=== PATIENT | female | born 1995 | race Caucasian/White ===

== ENCOUNTER 2017-03-04 08:24 | Emergency (ER) | payer OTHER ==
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
[2017-03-04 10:20] VITALS: BP 132/80; PULSE 106; RESP 16; TEMP 98.2
--- NOTE | 2017-03-04 10:58 | XR ---
EXAM TYPE: LUMBAR SPINE X RAY SERIES COMPARISON: NONE HISTORY: Back pain TECHNIQUE: 4 views are submitted. FINDINGS: Alignment is anatomic. The pedicles are intact. The transverse processes are intact. There is no s pondylolysis or spondylolisthesis. IMPRESSION: 1. No acute process.
--- NOTE | 2017-03-04 11:01 | XR ---
EXAMINATION TYPE: XR shoulder complete LT DATE OF EXAM: 03/04/2017 COMPARISON: NONE HISTORY: Pain TECHNIQUE: Three views are submitted. FINDINGS: The osseous structures are intact. There is no acute fracture or dislocation. The AC joint is maint ained. IMPRESSION: 1. No acute process.
--- NOTE | 2017-03-04 11:01 | XR ---
EXAMINATION TYPE: XR thoracic spine complete DATE OF EXAM: 03/04/2017 COMPARISON: NONE HISTORY: Pain Alignment is anatomic. There is no compression deformities. Vertebral body height and disc interspa fernando are maintained. IMPRESSION: 1. No acute abnormality.
--- NOTE | 2017-03-04 11:03 | XR ---
EXAMINATION TYPE: XR chest 2V DATE OF EXAM: 03/04/2017 COMPARISON: NONE HISTORY: Chest pain TECHNIQUE: Frontal and lateral views of the chest are obtained. FINDINGS: There is no focal air space opacity. No evidence for pneumothorax. No pleural effusion. The cardiac silhouette size is within normal limits. The osseous structures are grossly intact. IMPRESSION: 1. No acute cardiopulmonary process.
[2017-03-04] MEDS ORDERED: IBUPROFEN 600 MG TAB PO ONE (11:15)
== END 2017-03-04 11:20 | disposition home or self-care (01) ==
LOC: EC 08:24
DX: S16.1XXA Strain of muscle, fascia and tendon at neck level, initial encounter (principal); S39.012A Strain of muscle, fascia and tendon of lower back, initial encounter; M25.512 Pain in left shoulder; R51 Headache; Z88.0 Allergy status to penicillin; Z88.1 Allergy status to other antibiotic agents; V43.62XA Car passenger injured in collision with other type car in traffic accident, initial encounter; Y92.410 Unspecified street and highway as the place of occurrence of the external cause
CPT/HCPCS: 70450; 71020; 72072; 72100; 72125; 99284

== ENCOUNTER 2017-12-14 10:36 | Emergency (ER) | payer OTHER ==
[2017-12-14 10:45] VITALS: BP 122/72; PULSE 99; RESP 20; TEMP 99.3
--- NOTE | 2017-12-14 11:09 | ED ---
URI HPI - General Chief Complaint: Upper Respiratory Infection Stated Complaint: cold/flu symptoms Time Seen by Provider: 12/14/17 10:48 Source: patient, RN notes reviewed Mode of arrival: ambulatory Limitations: no limitations - History of Present Illness Initial Comments: This 22-year-old female presents emergency Department chief complaint of cough and cold symptoms and dizziness. Patient states that she has been sick for last 4-5 days. She states started with sore throat, right ear pain and sinus congestion. She states she does have productive cough at times. Patient does admit that she is a daily smoker. Patient denies any chest pain or current shortness of breath. Patient denies any fever or chills today but states that she's had some. Patient states that she was at work today bent over and sit up and felt dizzy. She states that dizziness has resolved. Patient states that she had to leave work because of the dizziness. She has been taking over-the- counter DayQuil, NyQuil, Sudafed. - Related Data Previous Rx's Medication Instructions Recorded Cephalexin [Keflex] 500 mg PO Q6HR #40 cap 12/14/17 predniSONE 50 mg PO DAILY #5 tab 12/14/17 Allergies Allergy/AdvReac Type Severity Reaction Status Date / Time amoxicillin [Amoxicillin] Allergy Rash/Hives Verified 12/14/17 10:45 azithromycin Allergy Rash/Hives Verified 12/14/17 10:45 cephalexin monohydrate Allergy Rash/Hives Verified 12/14/17 10:45 [From Keflex] ciprofloxacin [From Cipro] Allergy Rash/Hives Verified 12/14/17 10:45 ciprofloxacin HCl Allergy Rash/Hives Verified 12/14/17 10:45 [From Cipro] Penicillins Allergy Rash/Hives Verified 12/14/17 10:45 sulfamethoxazole Allergy Rash/Hives Verified 12/14/17 10:45 [From Bactrim] trimethoprim [From Bactrim] Allergy Rash/Hives Verified 12/14/17 10:45 Review of Systems ROS Statement: Those systems with pertinent positive or pertinent negative responses have been documented in the HPI. ROS Other: All systems not noted in ROS Statement are negative. Past Medical History Past Medical History: Asthma Additional Past Medical History / Comment(s): MIGRAINES History of Any Multi-Drug Resistant Organisms: None Reported Past Surgical History: No Surgical Hx Reported Additional Past Surgical History / Comment(s): wisdom teeth Past Psychological History: Anxiety Smoking Status: Current every day smoker Past Alcohol Use History: Occasional Past Drug Use History: None Reported General Exam General appearance: alert, in no apparent distress Head exam: Present: atraumatic, normocephalic, normal inspection Eye exam: Present: normal appearance, PERRL, EOMI. Absent: scleral icterus, conjunctival injection, periorbital swelling ENT exam: Present: mucous membranes moist, normal external ear exam. Absent: normal oropharynx (Mild erythema posterior pharynx with exudates,), TM's normal bilaterally ( posterior drainage noted fluid bilaterally ) Neck exam: Present: normal inspection, full ROM. Absent: tenderness, meningismus, lymphadenopathy Respiratory exam: Present: wheezes (Minimal). Absent: respiratory distress, rales, rhonchi, stridor Cardiovascular Exam: Present: regular rate, normal rhythm, normal heart sounds. Absent: systolic murmur, diastolic murmur, rubs, gallop, clicks Skin exam: Present: warm, dry, intact, normal color. Absent: rash Course Vital Signs 12/14/17 10:41 Temperature 99.3 F Pulse Rate 99 Respiratory 20 Rate Blood Pressure 122/72 O2 Sat by Pulse 100 Oximetry Medical Decision Making - Medical Decision Making 22-year-old female presents emergency department for cough and cold symptoms. Patient we treated for acute sinusitis bronchitis. Patient's dizziness associated with eustachian tube to dysfunction. Disposition Clinical Impression: Bronchitis, Sinusitis, Eustachian tube dysfunction Disposition: HOME SELF-CARE Condition: Stable Instructions: Upper Respiratory Infection (ED) Additional Instructions: Please return to the Emergency Department if symptoms worsen or any other concerns. Prescriptions: Cephalexin [Keflex] 500 mg PO Q6HR #40 cap predniSONE 50 mg PO DAILY #5 tab Is patient prescribed a controlled substance at d/c from ED?: No Referrals: Geovanna Lindo MD [Primary Care Provider] - 1-2 days Time of Disposition: 11:15
== END 2017-12-14 11:27 | disposition home or self-care (01) ==
LOC: EC 10:36
DX: J40 Bronchitis, not specified as acute or chronic (principal); J32.9 Chronic sinusitis, unspecified; H69.81 Other specified disorders of Eustachian tube, right ear; F17.200 Nicotine dependence, unspecified, uncomplicated; Z88.0 Allergy status to penicillin; Z88.1 Allergy status to other antibiotic agents; Z88.2 Allergy status to sulfonamides
CPT/HCPCS: 99283

== ENCOUNTER 2017-12-16 09:57 | Emergency (ER) | payer OTHER ==
[2017-12-16 10:02] VITALS: BP 137/88; PULSE 96; RESP 16; TEMP 98.4
[2017-12-16] MEDS ORDERED: LIDOCAINE VISCOUS 2% 15 ML CUP MUCOUS MEM ONE (10:09)
[2017-12-16] MEDS ORDERED: IBUPROFEN 600 MG TAB PO STA (10:09)
--- NOTE | 2017-12-16 10:52 | ED ---
ENT HPI - General Chief complaint: ENT Stated complaint: Sore throat Time Seen by Provider: 12/16/17 10:03 Source: patient, RN notes reviewed Mode of arrival: ambulatory Limitations: no limitations - History of Present Illness Initial comments: 22-year-old female presents emergency from it for sore throat. Patient presented emergency department. She'll for some her symptoms with upper history. Patient was given Keflex prednisone. She states that has not improved. Patient admits that she has not taken any Tylenol or Motrin no salt water gargles no other [id number] cough and cold medications. Patient reports no fevers patient has no difficult swelling. She states it is painful and she wants relief. - Related Data Previous Rx's Medication Instructions Recorded Cephalexin [Keflex] 500 mg PO Q6HR #40 cap 12/14/17 predniSONE 50 mg PO DAILY #5 tab 12/14/17 Ibuprofen [Motrin] 600 mg PO Q8HR PRN #30 tab 12/16/17 Allergies Allergy/AdvReac Type Severity Reaction Status Date / Time amoxicillin [Amoxicillin] Allergy Rash/Hives Verified 12/16/17 10:23 azithromycin Allergy Rash/Hives Verified 12/16/17 10:23 cephalexin monohydrate Allergy Rash/Hives Verified 12/16/17 10:23 [From Keflex] ciprofloxacin [From Cipro] Allergy Rash/Hives Verified 12/16/17 10:23 ciprofloxacin HCl Allergy Rash/Hives Verified 12/16/17 10:23 [From Cipro] Penicillins Allergy Rash/Hives Verified 12/16/17 10:23 sulfamethoxazole Allergy Rash/Hives Verified 12/16/17 10:23 [From Bactrim] trimethoprim [From Bactrim] Allergy Rash/Hives Verified 12/16/17 10:23 Review of Systems ROS Statement: Those systems with pertinent positive or pertinent negative responses have been documented in the HPI. ROS Other: All systems not noted in ROS Statement are negative. Past Medical History Past Medical History: Asthma Additional Past Medical History / Comment(s): MIGRAINES History of Any Multi-Drug Resistant Organisms: None Reported Past Surgical History: No Surgical Hx Reported Additional Past Surgical History / Comment(s): wisdom teeth Past Psychological History: Anxiety Smoking Status: Current every day smoker Past Alcohol Use History: Occasional Past Drug Use History: None Reported General Exam Limitations: no limitations General appearance: alert, in no apparent distress Head exam: Present: atraumatic, normocephalic, normal inspection Eye exam: Present: normal appearance, PERRL, EOMI. Absent: scleral icterus, conjunctival injection, periorbital swelling ENT exam: Present: mucous membranes moist, TM's normal bilaterally, normal external ear exam. Absent: normal oropharynx (Postnasal drainage, erythema noted) Neck exam: Present: normal inspection, full ROM. Absent: tenderness, meningismus, lymphadenopathy Respiratory exam: Present: normal lung sounds bilaterally. Absent: respiratory distress, wheezes, rales, rhonchi, stridor Cardiovascular Exam: Present: regular rate, normal rhythm, normal heart sounds. Absent: systolic murmur, diastolic murmur, rubs, gallop, clicks Course Vital Signs 12/16/17 09:59 Temperature 98.4 F Pulse Rate 96 Respiratory 16 Rate Blood Pressure 137/88 O2 Sat by Pulse 98 Oximetry Medical Decision Making - Medical Decision Making 22-year-old female presented for recheck or sore throat. Patient will continue on Keflex. Patient was given viscous lidocaine in the emergency department she is advised to use [id number] sprays and Tylenol Motrin. Disposition Clinical Impression: Acute pharyngitis Disposition: HOME SELF-CARE Condition: Stable Instructions: Pharyngitis (ED) Additional Instructions: Please return to the Emergency Department if symptoms worsen or any other concerns. Prescriptions: Ibuprofen [Motrin] 600 mg PO Q8HR PRN #30 tab PRN Reason: Pain Is patient prescribed a controlled substance at d/c from ED?: No Referrals: Geovanna Lindo MD [Primary Care Provider] - 1-2 days Time of Disposition: 10:52
== END 2017-12-16 10:55 | disposition home or self-care (01) ==
LOC: EC 09:57
DX: J02.9 Acute pharyngitis, unspecified (principal); F17.200 Nicotine dependence, unspecified, uncomplicated; Z88.0 Allergy status to penicillin; Z88.1 Allergy status to other antibiotic agents; Z88.2 Allergy status to sulfonamides
CPT/HCPCS: 99283

== ENCOUNTER 2018-01-03 07:57 | Emergency (ER) | payer OTHER ==
[2018-01-03 08:02] VITALS: BP 136/71; PULSE 87; RESP 18; TEMP 98.6
[2018-01-03] MEDS ORDERED: KETOROLAC 60 MG/2 ML VIAL IM STA (08:15)
[2018-01-03] MEDS ORDERED: ORPHENADRINE 30 MG/ML 2 ML VIAL IM STA (08:15)
[2018-01-03] MEDS ORDERED: ACET/COD 300 MG/30 MG STARTER PACK 6 TAB BTL PO STA (08:19)
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
== END 2018-01-03 08:36 | disposition home or self-care (01) ==
LOC: EC 07:57
DX: S16.1XXA Strain of muscle, fascia and tendon at neck level, initial encounter (principal); H69.91 Unspecified Eustachian tube disorder, right ear; F17.200 Nicotine dependence, unspecified, uncomplicated; Z88.0 Allergy status to penicillin; Z88.1 Allergy status to other antibiotic agents; Z88.2 Allergy status to sulfonamides; X58.XXXA Exposure to other specified factors, initial encounter
CPT/HCPCS: 99283; 96372 ×2; J2360; J1885

== ENCOUNTER 2019-12-01 08:48 | Emergency (ER) | payer OTHER ==
[2019-12-01 08:55] VITALS: BP 138/80; PULSE 89; RESP 18; TEMP 98.1
--- NOTE | 2019-12-01 09:08 | ED ---
General Adult HPI - General Chief complaint: ENT Stated complaint: lump behind ear Time Seen by Provider: 12/01/19 08:56 Source: patient, RN notes reviewed Mode of arrival: ambulatory Limitations: no limitations - History of Present Illness Initial comments: Patient is a pleasant 24-year-old female presenting to the emergency department with concerns for a lump behind her right ear. Onset of symptoms was a couple of days ago. Patient does have some discomfort. Patient noticed another lump near there that is not uncomfortable. Patient does have mild sinus congestion and discomfort. No sore throat or earache. Patient does have history of similar symptoms previously associated with lymph node. - Related Data Previous Rx's Medication Instructions Recorded Cephalexin [Keflex] 500 mg PO Q6HR #40 cap 12/14/17 predniSONE 50 mg PO DAILY #5 tab 12/14/17 Ibuprofen [Motrin] 600 mg PO Q8HR PRN #30 tab 12/16/17 Cyclobenzaprine [Flexeril] 10 mg PO TID PRN #15 tab 01/03/18 predniSONE 50 mg PO DAILY #5 tab 01/03/18 Doxycycline [Vibramycin] 50 mg PO Q12HR #14 capsule 12/01/19 Allergies Allergy/AdvReac Type Severity Reaction Status Date / Time amoxicillin [Amoxicillin] Allergy Rash/Hives Verified 12/01/19 08:55 azithromycin Allergy Rash/Hives Verified 12/01/19 08:55 cephalexin monohydrate Allergy Rash/Hives Verified 12/01/19 08:55 [From Keflex] ciprofloxacin [From Cipro] Allergy Rash/Hives Verified 12/01/19 08:55 ciprofloxacin HCl Allergy Rash/Hives Verified 12/01/19 08:55 [From Cipro] Penicillins Allergy Rash/Hives Verified 12/01/19 08:55 sulfamethoxazole Allergy Rash/Hives Verified 12/01/19 08:55 [From Bactrim] trimethoprim [From Bactrim] Allergy Rash/Hives Verified 12/01/19 08:55 Review of Systems ROS Statement: Those systems with pertinent positive or pertinent negative responses have been documented in the HPI. ROS Other: All systems not noted in ROS Statement are negative. Constitutional: Denies: fever Eyes: Denies: eye pain ENT: Reports: as per HPI Respiratory: Denies: cough, dyspnea Cardiovascular: Denies: chest pain Endocrine: Denies: fatigue Gastrointestinal: Denies: abdominal pain Genitourinary: Denies: urgency Skin: Reports: as per HPI. Denies: rash Neurological: Denies: weakness Past Medical History Past Medical History: Asthma Additional Past Medical History / Comment(s): MIGRAINES History of Any Multi-Drug Resistant Organisms: None Reported Past Surgical History: No Surgical Hx Reported Additional Past Surgical History / Comment(s): wisdom teeth Past Psychological History: Anxiety Smoking Status: Never smoker Past Alcohol Use History: Occasional Past Drug Use History: None Reported General Exam Limitations: no limitations General appearance: alert, in no apparent distress Head exam: Present: normocephalic ENT exam: Present: normal oropharynx, TM's normal bilaterally, other (2 small lymph nodes, one with tenderness right posterior auricular. No erythema.) Neck exam: Present: normal inspection, lymphadenopathy (Minimal lymphadenopathy right anterior cervical) Respiratory exam: Present: normal lung sounds bilaterally Cardiovascular Exam: Present: regular rate, normal rhythm GI/Abdominal exam: Present: soft. Absent: tenderness Extremities exam: Present: normal inspection Neurological exam: Present: alert Psychiatric exam: Present: normal affect, normal mood Skin exam: Present: normal color. Absent: erythema Course Vital Signs 12/01/19 08:53 Temperature 98.1 F Pulse Rate 89 Respiratory 18 Rate Blood Pressure 138/80 O2 Sat by Pulse 98 Oximetry Medical Decision Making - Medical Decision Making Patient does have multiple ALLERGIES however does want to try an antibiotic. Patient also complains of sinus symptoms. Disposition Clinical Impression: Swollen lymph nodes, Sinusitis Disposition: HOME SELF-CARE Condition: Stable Instructions (If sedation given, give patient instructions): Sinusitis (ED) Additional Instructions: Please follow-up with primary care physician in the next few days for recheck. Return for redness, difficulty breathing, increased lymph nodes, worsening or changing symptoms or other concerns. Prescription was sent to [facility] on Prescriptions: Doxycycline [Vibramycin] 50 mg PO Q12HR #14 capsule Is patient prescribed a controlled substance at d/c from ED?: No Referrals: Geovnana Lindo MD [Primary Care Provider] - 1-2 days Time of Disposition: 09:07
== END 2019-12-01 09:17 | disposition home or self-care (01) ==
LOC: EC 08:48
DX: J32.9 Chronic sinusitis, unspecified (principal); Z88.0 Allergy status to penicillin; Z88.1 Allergy status to other antibiotic agents; Z88.2 Allergy status to sulfonamides
CPT/HCPCS: 99283

== ENCOUNTER 2020-04-08 13:51 | Emergency (ER) | payer OTHER ==
[2020-04-08 14:16] VITALS: BP 123/75; PULSE 98; RESP 18; TEMP 99
[2020-04-08] MEDS ORDERED: SODIUM CHLORIDE 0.9% 500 ML 500 ML IV STA (14:29)
[2020-04-08] MEDS ORDERED: KETOROLAC 15 MG/ML 1 ML VIAL IVP STA (14:29)
--- NOTE | 2020-04-08 14:39 | ED ---
General Adult HPI - General Chief complaint: Abdominal Pain Stated complaint: back & abd pain Time Seen by Provider: 04/08/20 14:17 Source: patient Mode of arrival: ambulatory Limitations: no limitations - History of Present Illness Initial comments: Patient is a 24-year-old female presenting to the emergency Department with complaints of left-sided low back pain with radiation to left side of the abdomen. She states is going on for approximately 4 days, it is intermittent and but when it increases her pain is sometimes a 9/10. She denies any fever or chills, no nausea or vomiting. She denies any alleviating factors. She states she's tried some Tylenol Motrin yesterday without improvement. She states today was the first day she had off of work so she wanted to be evaluated. She denies being this time secondary to her boyfriend having a vasectomy. She denies any abdominal surgeries. She denies history of kidney stones but states she has had "inflammation of the pancreas." She has had normal bowel movements, she denies any dysuria or vaginal discharge. She has no further complaints at this time. Upon arrival to the ER, her vital signs are stable. - Related Data Home Medications Medication Instructions Recorded Confirmed Acetaminophen Tab [Tylenol Tab] 1,000 mg PO Q6HR PRN 04/08/20 04/08/20 Allergies Allergy/AdvReac Type Severity Reaction Status Date / Time amoxicillin [Amoxicillin] Allergy Rash/Hives Verified 04/08/20 15:03 azithromycin Allergy Rash/Hives Verified 04/08/20 15:03 cephalexin monohydrate Allergy Rash/Hives Verified 04/08/20 15:03 [From Keflex] ciprofloxacin [From Cipro] Allergy Rash/Hives Verified 04/08/20 15:03 ciprofloxacin HCl Allergy Rash/Hives Verified 04/08/20 15:03 [From Cipro] Penicillins Allergy Rash/Hives Verified 04/08/20 15:03 sulfamethoxazole Allergy Rash/Hives Verified 04/08/20 15:03 [From Bactrim] trimethoprim [From Bactrim] Allergy Rash/Hives Verified 04/08/20 15:03 Review of Systems ROS Statement: Those systems with pertinent positive or pertinent negative responses have been documented in the HPI. ROS Other: All systems not noted in ROS Statement are negative. Past Medical History Past Medical History: Asthma Additional Past Medical History / Comment(s): MIGRAINES History of Any Multi-Drug Resistant Organisms: None Reported Past Surgical History: No Surgical Hx Reported Additional Past Surgical History / Comment(s): wisdom teeth Past Psychological History: Anxiety Smoking Status: Never smoker Past Alcohol Use History: Occasional Past Drug Use History: None Reported General Exam - General Exam Comments Initial Comments: GENERAL: Patient is well-developed and well-nourished. Patient is nontoxic and in no acute distress. HEAD: Atraumatic, normocephalic. EYES: Pupils equal round and reactive to light, extraocular movements intact, sclera anicteric, conjunctiva are normal. Eyelids were unremarkable. ENT: TMs normal, nares patent, oropharynx clear without exudates. Moist mucous membranes. NECK: Normal range of motion, supple without lymphadenopathy or JVD. LUNGS: Unlabored respirations. Breath sounds clear to auscultation bilaterally and equal. No wheezes rales or rhonchi. HEART: Regular rate and rhythm without murmurs, rubs or gallops. ABDOMEN: The discomfort with palpation over left side of the abdomen. Soft, normoactive bowel sounds. No guarding, no rebound. No masses appreciated. : Deferred MUSCULOSKELETAL: Normal extremities with adequate strength and normal range of motion, no pitting or edema. No clubbing or cyanosis. NEUROLOGICAL: Patient is alert and oriented x 3. Motor and sensory are also intact. Cranial nerves II through XII grossly intact. Symmetrical smile. Normal speech, normal gait. PSYCH: Normal mood, normal affect. SKIN: Warm, Dry, normal turgor, no rashes or lesions noted. Limitations: no limitations Course Vital Signs 04/08/20 14:14 Temperature 99.0 F Pulse Rate 98 Respiratory 18 Rate Blood Pressure 123/75 O2 Sat by Pulse 99 Oximetry Medical Decision Making - Medical Decision Making Patient is a 24-year-old female here for left sided abdominal discomfort with radiation into the left low back 4 days. Her vital signs are stable. No fevers, no nausea or vomiting. No history of abdominal surgeries, she denies . Lab work is unremarkable, no abnormalities, urine shows no evidence infection, hCG is not detected. Patient had a KUB which also shows no abnormalities. I did give her some Toradol, she's been resting currently in the room, no acute distress. On reexamination, she states her pain is only a 1/10. I discussed with patient her pain could be from constipation, viral, or gas pains. I recommended continue to drink a lot of fluids, ibuprofen account for any discomfort. She can follow up with her PCP as symptoms persist. Return parameters were discussed with the patient and she verbalized understanding. Case discussed with Dr. Roman. - Lab Data Result diagrams: 04/08/20 15:00 04/08/20 15:00 Lab Results 04/08/20 04/08/20 04/08/20 Range/Units 15:00 15:00 15:00 WBC 8.4 (3.8-10.6) k/uL RBC 4.47 (3.80-5.40) m/uL Hgb 12.5 (11.4-16.0) gm/dL Hct 37.9 (34.0-46.0) % MCV 84.7 (80.0-100.0) fL MCH 28.0 (25.0-35.0) pg MCHC 33.0 (31.0-37.0) g/dL RDW 13.6 (11.5-15.5) % Plt Count 433 (150-450) k/uL MPV 6.6 Neutrophils % 75 % Lymphocytes % 17 % Monocytes % 4 % Eosinophils % 2 % Basophils % 1 % Neutrophils # 6.3 (1.3-7.7) k/uL Lymphocytes # 1.4 (1.0-4.8) k/uL Monocytes # 0.3 (0-1.0) k/uL Eosinophils # 0.2 (0-0.7) k/uL Basophils # 0.1 (0-0.2) k/uL Sodium 138 (137-145) mmol/L Potassium 4.8 (3.5-5.1) mmol/L Chloride 104 (98-107) mmol/L Carbon Dioxide 27 (22-30) mmol/L Anion Gap 7 mmol/L BUN 13 (7-17) mg/dL Creatinine 0.57 (0.52-1.04) mg/dL Est GFR (CKD-EPI)AfAm >90 (>60 ml/min/1.73 sqM) Est GFR (CKD-EPI)NonAf >90 (>60 ml/min/1.73 sqM) Glucose 89 (74-99) mg/dL Plasma Lactic Acid Lucho 0.7 (0.7-2.0) mmol/L Calcium 9.5 (8.4-10.2) mg/dL Total Bilirubin 0.5 (0.2-1.3) mg/dL AST 24 (14-36) U/L ALT 20 (4-34) U/L Alkaline Phosphatase 74 (38-126) U/L Total Protein 7.9 (6.3-8.2) g/dL Albumin 4.3 (3.5-5.0) g/dL Lipase 53 (23-300) U/L Urine Color Urine Appearance (Clear) Urine pH (5.0-8.0) Ur Specific [place] (1.001-1.035) Urine Protein (Negative) Urine Glucose (UA) (Negative) Urine Ketones (Negative) Urine Blood (Negative) Urine Nitrite (Negative) Urine Bilirubin (Negative) Urine Urobilinogen (<2.0) mg/dL Ur Leukocyte Esterase (Negative) Urine HCG, Qual (Not Detectd) 04/08/20 04/08/20 Range/Units 15:00 15:00 WBC (3.8-10.6) k/uL RBC (3.80-5.40) m/uL Hgb (11.4-16.0) gm/dL Hct (34.0-46.0) % MCV (80.0-100.0) fL MCH (25.0-35.0) pg MCHC (31.0-37.0) g/dL RDW (11.5-15.5) % Plt Count (150-450) k/uL MPV Neutrophils % % Lymphocytes % % Monocytes % % Eosinophils % % Basophils % % Neutrophils # (1.3-7.7) k/uL Lymphocytes # (1.0-4.8) k/uL Monocytes # (0-1.0) k/uL Eosinophils # (0-0.7) k/uL Basophils # (0-0.2) k/uL Sodium (137-145) mmol/L Potassium (3.5-5.1) mmol/L Chloride (98-107) mmol/L Carbon Dioxide (22-30) mmol/L Anion Gap mmol/L BUN (7-17) mg/dL Creatinine (0.52-1.04) mg/dL Est GFR (CKD-EPI)AfAm (>60 ml/min/1.73 sqM) Est GFR (CKD-EPI)NonAf (>60 ml/min/1.73 sqM) Glucose (74-99) mg/dL Plasma Lactic Acid Lucho (0.7-2.0) mmol/L Calcium (8.4-10.2) mg/dL Total Bilirubin (0.2-1.3) mg/dL AST (14-36) U/L ALT (4-34) U/L Alkaline Phosphatase (38-126) U/L Total Protein (6.3-8.2) g/dL Albumin (3.5-5.0) g/dL Lipase (23-300) U/L Urine Color Yellow Urine Appearance Clear (Clear) Urine pH 7.5 (5.0-8.0) Ur Specific [place] 1.023 (1.001-1.035) Urine Protein Negative (Negative) Urine Glucose (UA) Negative (Negative) Urine Ketones Negative (Negative) Urine Blood Negative (Negative) Urine Nitrite Negative (Negative) Urine Bilirubin Negative (Negative) Urine Urobilinogen <2.0 (<2.0) mg/dL Ur Leukocyte Esterase Negative (Negative) Urine HCG, Qual Not Detected (Not Detectd) Disposition Clinical Impression: Abdominal pain Disposition: HOME SELF-CARE Condition: Stable Instructions (If sedation given, give patient instructions): Abdominal Pain (ED) Additional Instructions: Please return to the Emergency Department if symptoms worsen or any other concerns. Please make sure to drink plenty of water, Tylenol and Motrin for discomfort. Follow up with her regular family physician. Is patient prescribed a controlled substance at d/c from ED?: No Referrals: Geovanna Lindo MD [Primary Care Provider] - 1-2 days Time of Disposition: 15:57
[2020-04-08 15:13] LABS: Basophils # (A) 0.1 k/uL (0-0.2); Basophils % (A) 1 %; Eosinophils # (A) 0.2 k/uL (0-0.7); Eosinophils % (A) 2 %; HCT 37.9 % (34.0-46.0); HGB 12.5 gm/dL (11.4-16.0); Lymphocytes # (A) 1.4 k/uL (1.0-4.8); Lymphocytes % (A) 17 %; MCV 84.7 fL (80.0-100.0); Mean Platelet Volume 6.6; Monocytes # (A) 0.3 k/uL (0-1.0); Monocytes % (A) 4 %; Neutrophils # (A) 6.3 k/uL (1.3-7.7); Neutrophils % (A) 75 %; Platelet Count 433 k/uL (150-450); RBC 4.47 m/uL (3.80-5.40); RDW 13.6 % (11.5-15.5); WBC 8.4 k/uL (3.8-10.6)
[2020-04-08 15:16] LABS: Appearance,Urine Clear (Clear); Bilirubin,Urine Negative (Negative); Blood,Urine Negative (Negative); Color,Urine Yellow; Glucose,Urine (UA) Negative (Negative); Ketones,Urine Negative (Negative); Leukocyte Esterase,Urine Negative (Negative); Nitrite,Urine Negative (Negative); PH, Urine 7.5 (5.0-8.0); Protein,Urine Negative (Negative); Specific Gravity,Urine 1.023 (1.001-1.035); Urobilinogen,Urine <2.0 mg/dL (<2.0)
[2020-04-08 15:29] LABS: ALT 20 U/L (4-34); AST 24 U/L (14-36); African American GFR (CKD) >90 (>60 ml/min/1.73 sqM); Albumin 4.3 g/dL (3.5-5.0); Alkaline Phosphatase 74 U/L (38-126); Anion Gap 7 mmol/L; Blood Urea Nitrogen 13 mg/dL (7-17); Calcium 9.5 mg/dL (8.4-10.2); Carbon Dioxide 27 mmol/L (22-30); Chloride 104 mmol/L (98-107); Glucose 89 mg/dL (74-99); Lipase 53 U/L (23-300); Non-African American GFR(CKD) >90 (>60 ml/min/1.73 sqM); Potassium 4.8 mmol/L (3.5-5.1); Sodium 138 mmol/L (137-145); Total Bilirubin 0.5 mg/dL (0.2-1.3); Total Protein 7.9 g/dL (6.3-8.2)
--- NOTE | 2020-04-08 15:42 | XR ---
KUB HISTORY: Left-sided pain From a KUB submitted on 2 images, correlation previous exam 04/18/2015 Lung bases are clear. There is no evident bowel obstruction or pneumoperitoneum. No pathologic calcif ication. Bone mineralization is normal. Exam may be limited by patient body habitus. IMPRESSION: No significant abnormalities evident.
== END 2020-04-08 16:12 | disposition home or self-care (01) ==
LOC: EC 13:51
DX: R10.9 Unspecified abdominal pain (principal); M54.5 Low back pain; Z88.0 Allergy status to penicillin; Z88.1 Allergy status to other antibiotic agents; Z88.2 Allergy status to sulfonamides
CPT/HCPCS: 36415; 80053; 83605; 83690; 85025; 81003; 81025; 74018; 99284; 96374; 96361; J1885

== ENCOUNTER 2020-09-28 19:55 | Emergency (ER) | payer OTHER ==
[2020-09-28 20:01] VITALS: TEMP 98.4
[2020-09-28] MEDS ORDERED: MORPHINE SULFATE 4 MG/ML SYRINGE IV STA (20:41)
[2020-09-28] MEDS ORDERED: PANTOPRAZOLE 40 MG/10 ML VIAL IVP STA (20:41)
[2020-09-28] MEDS ORDERED: ONDANSETRON 4 MG/2 ML VIAL IVP STA (20:41)
[2020-09-28] MEDS ORDERED: SODIUM CHLORIDE 0.9% 1,000 ML IV STA (20:41)
--- NOTE | 2020-09-28 21:07 | ED ---
Abdominal Pain HPI - General Chief Complaint: Abdominal Pain Stated Complaint: Abd pain Time Seen by Provider: 09/28/20 20:26 Source: patient Mode of arrival: ambulatory Limitations: no limitations - History of Present Illness Initial Comments: 24-year-old female patient presents to the emergency department today for evaluation of upper abdominal pain with nausea. This is located over the mid epigastric and left upper quadrant. Patient states pain starts about 20-30 minutes after eating. This has been going on for the last 3 days. States it does radiate to his her back. She is also reporting new onset headache today. States he hasn't been eating or drinking as much. Denies any lower abdominal pain. Denies any hematuria, dysuria, urinary frequency, urinary urgency. Denies any constipation or diarrhea. Denies fever or chills. Denies history of abdominal surgery. Denies chance of . - Related Data Home Medications Medication Instructions Recorded Confirmed Acetaminophen Tab [Tylenol Tab] 1,000 mg PO Q6HR PRN 04/08/20 04/08/20 Previous Rx's Medication Instructions Recorded Famotidine [Pepcid] 20 mg PO BID #60 tablet 09/28/20 Ondansetron [Zofran ODT] 4 mg PO Q8HR PRN #10 tab 09/28/20 Allergies Allergy/AdvReac Type Severity Reaction Status Date / Time amoxicillin [Amoxicillin] Allergy Rash/Hives Verified 09/28/20 20:01 azithromycin Allergy Rash/Hives Verified 09/28/20 20:01 cephalexin monohydrate Allergy Rash/Hives Verified 09/28/20 20:01 [From Keflex] ciprofloxacin [From Cipro] Allergy Rash/Hives Verified 09/28/20 20:01 ciprofloxacin HCl Allergy Rash/Hives Verified 09/28/20 20:01 [From Cipro] Penicillins Allergy Rash/Hives Verified 09/28/20 20:01 sulfamethoxazole Allergy Rash/Hives Verified 09/28/20 20:01 [From Bactrim] trimethoprim [From Bactrim] Allergy Rash/Hives Verified 09/28/20 20:01 Review of Systems ROS Statement: Those systems with pertinent positive or pertinent negative responses have been documented in the HPI. ROS Other: All systems not noted in ROS Statement are negative. Past Medical History Past Medical History: Asthma Additional Past Medical History / Comment(s): MIGRAINES History of Any Multi-Drug Resistant Organisms: None Reported Past Surgical History: No Surgical Hx Reported Additional Past Surgical History / Comment(s): wisdom teeth Past Psychological History: Anxiety Smoking Status: Never smoker Past Alcohol Use History: Occasional Past Drug Use History: None Reported General Exam Limitations: no limitations General appearance: alert, in no apparent distress, other (Physical well- developed, well-nourished adult male patient in no acute distress. Vital signs upon presentation are 98.4F, pulse 106, respirations 16, blood pressure 141/81, pulse ox 99% on room air.) Eye exam: Present: normal appearance, PERRL, EOMI. Absent: scleral icterus, conjunctival injection, periorbital swelling ENT exam: Present: normal exam, normal oropharynx, mucous membranes moist Respiratory exam: Present: normal lung sounds bilaterally. Absent: respiratory distress, wheezes, rales, rhonchi, stridor Cardiovascular Exam: Present: normal rhythm, tachycardia, normal heart sounds. Absent: systolic murmur, diastolic murmur, rubs, gallop, clicks GI/Abdominal exam: Present: soft, tenderness (Mid epigastric, left upper quadrant), normal bowel sounds. Absent: distended, guarding, rebound, rigid Neurological exam: Present: alert, oriented X3, CN II-XII intact Psychiatric exam: Present: normal affect, normal mood Skin exam: Present: warm, dry, intact, normal color. Absent: rash Course Vital Signs 09/28/20 09/28/20 09/28/20 19:56 20:57 22:04 Temperature 98.4 F Pulse Rate 106 H 91 78 Respiratory 16 18 18 Rate Blood Pressure 141/81 126/80 121/63 O2 Sat by Pulse 99 100 100 Oximetry 09/28/20 23:15 Temperature Pulse Rate 72 Respiratory 18 Rate Blood Pressure 110/73 O2 Sat by Pulse 100 Oximetry Medical Decision Making - Medical Decision Making 24-year-old female patient presents to emergency department today for evaluation of mid upper and left upper quadrant abdominal pain and nausea. Symptoms worsened with eating. Physical examination did reveal some midepigastric left upper quadrant abdominal tenderness. Labs reviewed and are unremarkable. Urinalysis is negative. Ultrasound of the right upper quadrant was obtained and was negative. I did discuss findings and results with the patient. We did d iscuss possible gastritis as a cause for her symptoms. She'll be started on Pepcid twice daily and given instructions for a diary of her stomach ulcers and gastritis or she is instructed to follow-up with her primary care physician for recheck in 1 week. Return parameters were discussed in detail. She verbalizes understanding and agrees with this plan. Case discussed with my attending Dr. Sandoval. - Lab Data Result diagrams: 09/28/20 20:57 09/28/20 20:57 Lab Results 09/28/20 09/28/20 09/28/20 Range/Units 20:57 20:57 20:57 WBC 10.9 H (3.8-10.6) k/uL RBC 4.70 (3.80-5.40) m/uL Hgb 13.2 (11.4-16.0) gm/dL Hct 40.0 (34.0-46.0) % MCV 85.1 (80.0-100.0) fL MCH 28.0 (25.0-35.0) pg MCHC 32.9 (31.0-37.0) g/dL RDW 13.0 (11.5-15.5) % Plt Count 504 H (150-450) k/uL MPV 6.8 Neutrophils % 75 % Lymphocytes % 18 % Monocytes % 4 % Eosinophils % 1 % Basophils % 1 % Neutrophils # 8.2 H (1.3-7.7) k/uL Lymphocytes # 1.9 (1.0-4.8) k/uL Monocytes # 0.4 (0-1.0) k/uL Eosinophils # 0.1 (0-0.7) k/uL Basophils # 0.1 (0-0.2) k/uL Sodium 140 (137-145) mmol/L Potassium 4.2 (3.5-5.1) mmol/L Chloride 102 (98-107) mmol/L Carbon Dioxide 27 (22-30) mmol/L Anion Gap 11 mmol/L BUN 13 (7-17) mg/dL Creatinine 0.79 (0.52-1.04) mg/dL Est GFR (CKD-EPI)AfAm >90 (>60 ml/min/1.73 sqM) Est GFR (CKD-EPI)NonAf >90 (>60 ml/min/1.73 sqM) Glucose 98 (74-99) mg/dL Plasma Lactic Acid Lucho 1.0 (0.7-2.0) mmol/L Calcium 10.0 (8.4-10.2) mg/dL Total Bilirubin 0.1 L (0.2-1.3) mg/dL AST 19 (14-36) U/L ALT 14 (4-34) U/L Alkaline Phosphatase 81 (38-126) U/L Total Protein 7.8 (6.3-8.2) g/dL Albumin 4.6 (3.5-5.0) g/dL Lipase 69 (23-300) U/L Urine Color Urine Appearance (Clear) Urine pH (5.0-8.0) Ur Specific [place] (1.001-1.035) Urine Protein (Negative) Urine Glucose (UA) (Negative) Urine Ketones (Negative) Urine Blood (Negative) Urine Nitrite (Negative) Urine Bilirubin (Negative) Urine Urobilinogen (<2.0) mg/dL Ur Leukocyte Esterase (Negative) Urine RBC (0-5) /hpf Urine WBC (0-5) /hpf Ur Squamous Epith Cells (0-4) /hpf Urine Mucus (None) /hpf Urine HCG, Qual (Not Detectd) 09/28/20 09/28/20 Range/Units 22:04 22:04 WBC (3.8-10.6) k/uL RBC (3.80-5.40) m/uL Hgb (11.4-16.0) gm/dL Hct (34.0-46.0) % MCV (80.0-100.0) fL MCH (25.0-35.0) pg MCHC (31.0-37.0) g/dL RDW (11.5-15.5) % Plt Count (150-450) k/uL MPV Neutrophils % % Lymphocytes % % Monocytes % % Eosinophils % % Basophils % % Neutrophils # (1.3-7.7) k/uL Lymphocytes # (1.0-4.8) k/uL Monocytes # (0-1.0) k/uL Eosinophils # (0-0.7) k/uL Basophils # (0-0.2) k/uL Sodium (137-145) mmol/L Potassium (3.5-5.1) mmol/L Chloride (98-107) mmol/L Carbon Dioxide (22-30) mmol/L Anion Gap mmol/L BUN (7-17) mg/dL Creatinine (0.52-1.04) mg/dL Est GFR (CKD-EPI)AfAm (>60 ml/min/1.73 sqM) Est GFR (CKD-EPI)NonAf (>60 ml/min/1.73 sqM) Glucose (74-99) mg/dL Plasma Lactic Acid [place] (0.7-2.0) mmol/L Calcium (8.4-10.2) mg/dL Total Bilirubin (0.2-1.3) mg/dL AST (14-36) U/L ALT (4-34) U/L Alkaline Phosphatase (38-126) U/L Total Protein (6.3-8.2) g/dL Albumin (3.5-5.0) g/dL Lipase (23-300) U/L Urine Color Light Yellow Urine Appearance Cloudy H (Clear) Urine pH 6.0 (5.0-8.0) Ur Specific [place] 1.019 (1.001-1.035) Urine Protein Negative (Negative) Urine Glucose (UA) Negative (Negative) Urine Ketones Negative (Negative) Urine Blood Negative (Negative) Urine Nitrite Negative (Negative) Urine Bilirubin Negative (Negative) Urine Urobilinogen <2.0 (<2.0) mg/dL Ur Leukocyte Esterase Small H (Negative) Urine RBC 3 (0-5) /hpf Urine WBC 4 (0-5) /hpf Ur Squamous Epith Cells 8 H (0-4) /hpf Urine Mucus Rare H (None) /hpf Urine HCG, Qual Not Detected (Not Detectd) - Radiology Data Radiology results: report reviewed Ultrasound of the right upper quadrant was obtained. Report was reviewed in its entirety. Impression by Dr. Herman shows no focal liver defect. No gallstones or dilated ducts. Disposition Clinical Impression: Abdominal pain Disposition: HOME SELF-CARE Condition: Good Instructions (If sedation given, give patient instructions): Gastritis (ED), Diet for Stomach Ulcers and Gastritis (ED), Abdominal Pain (ED) Additional Instructions: Take medications as directed. Follow-up with your primary care physician for recheck in 1-2 days. Discuss referral to gastroenterology if symptoms do not improve. Return to the emergency department for any new, worsening, or concerning symptoms. Prescriptions: Famotidine [Pepcid] 20 mg PO BID #60 tablet Ondansetron [Zofran ODT] 4 mg PO Q8HR PRN #10 tab PRN Reason: Nausea Is patient prescribed a controlled substance at d/c from ED?: No Referrals: Geovanna Lindo MD [Primary Care Provider] - 1-2 days Time of Disposition: 23:30
[2020-09-28 21:10] VITALS: RESP 18
[2020-09-28 21:24] LABS: Basophils # (A) 0.1 k/uL (0-0.2); Basophils % (A) 1 %; Eosinophils # (A) 0.1 k/uL (0-0.7); Eosinophils % (A) 1 %; HGB 13.2 gm/dL (11.4-16.0); Lymphocytes # (A) 1.9 k/uL (1.0-4.8); Lymphocytes % (A) 18 %; MCHC 32.9 g/dL (31.0-37.0); MCV 85.1 fL (80.0-100.0); Mean Platelet Volume 6.8; Monocytes # (A) 0.4 k/uL (0-1.0); Monocytes % (A) 4 %; Neutrophils # (A) 8.2 k/uL (1.3-7.7); Neutrophils % (A) 75 %; Platelet Count 504 k/uL (150-450); WBC 10.9 k/uL (3.8-10.6)
[2020-09-28 22:02] LABS: ALT 14 U/L (4-34); AST 19 U/L (14-36); African American GFR (CKD) >90 (>60 ml/min/1.73 sqM); Albumin 4.6 g/dL (3.5-5.0); Alkaline Phosphatase 81 U/L (38-126); Anion Gap 11 mmol/L; Blood Urea Nitrogen 13 mg/dL (7-17); Carbon Dioxide 27 mmol/L (22-30); Chloride 102 mmol/L (98-107); Glucose 98 mg/dL (74-99); Lipase 69 U/L (23-300); Non-African American GFR(CKD) >90 (>60 ml/min/1.73 sqM); Potassium 4.2 mmol/L (3.5-5.1); Sodium 140 mmol/L (137-145); Total Bilirubin 0.1 mg/dL (0.2-1.3); Total Protein 7.8 g/dL (6.3-8.2)
--- NOTE | 2020-09-28 22:31 | US ---
EXAMINATION TYPE: US abdomen limited DATE OF EXAM: 09/28/2020 COMPARISON: NONE CLINICAL HISTORY: Upper abd pain with eating. Abdomen pain and nausea x 3 weeks, gets worse after eat ing EXAM MEASUREMENTS: Liver Length: 14.2 cm Gallbladder Wall: 0.2 cm CBD: 0.3 cm Right Kidney: 10.9 x 4.9 x 4.7 cm Difficult and limited study due to patient body habitus Pancreas: visualized portions wnl, mostly obscured by overlying midline bowel gas Liver: mildly heterogeneous Gallbladder: wnl Evidence for sonographic Mckeon's sign: no CBD: visualized portions wnl, limited by overlying bowel gas Right Kidney: visualized portions wnl, limited by overlying bowel gas IMPRESSION: No focal liver defect. No gallstones or dilated ducts.
[2020-09-28 22:34] LABS: Appearance,Urine Cloudy (Clear); Bilirubin,Urine Negative (Negative); Blood,Urine Negative (Negative); Color,Urine Light Yellow; Glucose,Urine (UA) Negative (Negative); Ketones,Urine Negative (Negative); Leukocyte Esterase,Urine Small (Negative); Mucus,Urine Rare /hpf; Nitrite,Urine Negative (Negative); Protein,Urine Negative (Negative); RBC,Urine 3 /hpf (0-5); Specific Gravity,Urine 1.019 (1.001-1.035); Squamous Epithelial Cell,Urine 8 /hpf (0-4); Urobilinogen,Urine <2.0 mg/dL (<2.0); WBC,Urine 4 /hpf (0-5)
[2020-09-28 23:16] VITALS: BP 110/73; PULSE 72
[2020-09-28] MEDS ORDERED: ONDANSETRON 4 MG ODT STARTER PACK 2 TAB BTL PO STA (23:30)
== END 2020-09-29 00:07 | disposition home or self-care (01) ==
LOC: EC 19:55
DX: R10.10 Upper abdominal pain, unspecified (principal); J45.909 Unspecified asthma, uncomplicated
CPT/HCPCS: 36415; 80053; 83605; 83690; 85025; 81001; 81025; 76705; 99284; 96374; 96375 ×2; 96361; J2270; J2405; S0119; C9113

== ENCOUNTER 2020-09-30 15:54 | Emergency (ER) | payer OTHER ==
[2020-09-30 16:03] VITALS: TEMP 98.2
[2020-09-30] MEDS ORDERED: KETOROLAC 15 MG/ML 1 ML VIAL IVP STA (16:38)
[2020-09-30] MEDS ORDERED: SODIUM CHLORIDE 0.9% 1,000 ML IV STA (16:38)
[2020-09-30] MEDS ORDERED: ONDANSETRON 4 MG/2 ML VIAL IVP STA (16:38)
[2020-09-30 17:10] LABS: Basophils # (A) 0.1 k/uL (0-0.2); Basophils % (A) 1 %; Eosinophils # (A) 0.1 k/uL (0-0.7); Eosinophils % (A) 1 %; HCT 39.6 % (34.0-46.0); HGB 12.8 gm/dL (11.4-16.0); Lymphocytes # (A) 1.6 k/uL (1.0-4.8); Lymphocytes % (A) 16 %; MCH 28.6 pg (25.0-35.0); MCHC 32.2 g/dL (31.0-37.0); MCV 88.7 fL (80.0-100.0); Mean Platelet Volume 6.5; Monocytes # (A) 0.3 k/uL (0-1.0); Monocytes % (A) 3 %; Neutrophils # (A) 7.9 k/uL (1.3-7.7); Neutrophils % (A) 78 %; Platelet Count 495 k/uL (150-450); RBC 4.46 m/uL (3.80-5.40); RDW 13.4 % (11.5-15.5); WBC 10.2 k/uL (3.8-10.6)
[2020-09-30 17:19] LABS: ALT 15 U/L (4-34); AST 36 U/L (14-36); African American GFR (CKD) >90 (>60 ml/min/1.73 sqM); Albumin 4.6 g/dL (3.5-5.0); Alkaline Phosphatase 82 U/L (38-126); Anion Gap 12 mmol/L; Appearance,Urine Cloudy (Clear); Bacteria,Urine Rare /hpf; Bilirubin,Urine Negative (Negative); Blood Urea Nitrogen 11 mg/dL (7-17); Blood,Urine Negative (Negative); Calcium 9.5 mg/dL (8.4-10.2); Carbon Dioxide 23 mmol/L (22-30); Chloride 103 mmol/L (98-107); Color,Urine Yellow; Glucose 85 mg/dL (74-99); Glucose,Urine (UA) Negative (Negative); Hyaline Casts,Urine 1 /lpf (0-2); Ketones,Urine Negative (Negative); Leukocyte Esterase,Urine Moderate (Negative); Mucus,Urine Occasional /hpf; Nitrite,Urine Negative (Negative); Non-African American GFR(CKD) >90 (>60 ml/min/1.73 sqM); PH, Urine 6.5 (5.0-8.0); Protein,Urine Negative (Negative); RBC,Urine 6 /hpf (0-5); Sodium 138 mmol/L (137-145); Specific Gravity,Urine 1.021 (1.001-1.035); Squamous Epithelial Cell,Urine 26 /hpf (0-4); Total Bilirubin 0.7 mg/dL (0.2-1.3); Total Protein 7.9 g/dL (6.3-8.2); Urobilinogen,Urine <2.0 mg/dL (<2.0); WBC,Urine 8 /hpf (0-5)
[2020-09-30 17:23] LABS: Potassium 5.4 mmol/L (3.5-5.1)
--- NOTE | 2020-09-30 18:07 | CT ---
EXAMINATION TYPE: CT abdomen pelvis w con DATE OF EXAM: 09/30/2020 COMPARISON: None HISTORY: LLQ pain. CT DLP: 2642.5 mGycm Automated exposure control for dose reduction was used. CONTRAST: Performed with IV Contrast, patient injected with 100 mL of Isovue 300. Images obtained from the diaphragm to the floor the pelvis with IV contrast. Lung bases are clear. There is no pleural effusion. Heart size is normal. There is no pericardial eff usion. Liver spleen stomach pancreas gallbladder appear intact. Bile ducts are not dilated. There is no adrenal mass. Kidneys show satisfactory contrast opacification. There is no hydronephrosi s. Appendix is posterior and appears normal. Ureters are not dilated. Bladder distends smoothly. Uter us is anteverted. There is no inguinal hernia. Lumbar vertebra have normal alignment. Disc spaces are normal. Posterior elements are intact. There i s no compression fracture. Bony pelvis is intact. The hip joints are intact. There is no hip dysplasia. There is no mesenteric e carmen. There is no ascites or free air. There is no sign of a bowel obstruction. IMPRESSION: Normal CT scan abdomen and pelvis.
--- NOTE | 2020-09-30 18:11 | ED ---
Abdominal Pain HPI - General Chief Complaint: Abdominal Pain Stated Complaint: ABD pain Time Seen by Provider: 09/30/20 16:22 Source: patient, RN notes reviewed Mode of arrival: ambulatory Limitations: no limitations - History of Present Illness Initial Comments: Patient is a 24-year-old female that presents to the emergency department complaining of generalized abdominal discomfort. She notes she was seen 3 days ago got basic labs and was discharged home. She notes that she follow up with a primary care today and noted that the pain was increased to which they told her to come emergency room to get a computed tomography scan. Patient did not a ppear to be in any distress or pain while sitting up in bed. She did appear to be irritated decided to come back to ER. She denied any chest pain shortness of breath headache nausea vomiting diarrhea constipation fever fatigue chills. - Related Data Home Medications Medication Instructions Recorded Confirmed Acetaminophen Tab [Tylenol Tab] 1,000 mg PO Q6HR PRN 04/08/20 04/08/20 Albuterol Sulfate [Proair Hfa] 2 puff INHALATION RT-QID PRN 09/30/20 09/30/20 Dicyclomine HCl 10 mg PO TID PRN 09/30/20 09/30/20 Loratadine 10 mg PO DAILY PRN 09/30/20 09/30/20 Nitrofurantoin Monohyd/M-Cryst 100 mg PO Q12HR 09/30/20 09/30/20 [Macrobid] Pantoprazole Sodium 40 mg PO DAILY 09/30/20 09/30/20 Previous Rx's Medication Instructions Recorded Famotidine [Pepcid] 20 mg PO BID #60 tablet 09/28/20 Ondansetron [Zofran ODT] 4 mg PO Q8HR PRN #10 tab 09/28/20 Dicyclomine [Bentyl] 20 mg PO TID #30 tablet 09/30/20 Allergies Allergy/AdvReac Type Severity Reaction Status Date / Time amoxicillin [Amoxicillin] Allergy Rash/Hives Verified 09/30/20 18:24 azithromycin Allergy Rash/Hives Verified 09/30/20 18:24 cephalexin monohydrate Allergy Rash/Hives Verified 09/30/20 18:24 [From Keflex] ciprofloxacin [From Cipro] Allergy Rash/Hives Verified 09/30/20 18:24 ciprofloxacin HCl Allergy Rash/Hives Verified 09/30/20 18:24 [From Cipro] Penicillins Allergy Rash/Hives Verified 09/30/20 18:24 sulfamethoxazole Allergy Rash/Hives Verified 09/30/20 18:24 [From Bactrim] trimethoprim [From Bactrim] Allergy Rash/Hives Verified 09/30/20 18:24 Review of Systems ROS Statement: Those systems with pertinent positive or pertinent negative responses have been documented in the HPI. ROS Other: All systems not noted in ROS Statement are negative. Past Medical History Past Medical History: Asthma Additional Past Medical History / Comment(s): MIGRAINES History of Any Multi-Drug Resistant Organisms: None Reported Past Surgical History: No Surgical Hx Reported Additional Past Surgical History / Comment(s): wisdom teeth Past Psychological History: Anxiety Smoking Status: Never smoker Past Alcohol Use History: Occasional Past Drug Use History: None Reported General Exam Limitations: no limitations General appearance: alert, in no apparent distress, obese Head exam: Present: atraumatic, normocephalic, normal inspection Eye exam: Present: normal appearance, PERRL, EOMI. Absent: scleral icterus, conjunctival injection, periorbital swelling Neck exam: Present: normal inspection Respiratory exam: Present: normal lung sounds bilaterally. Absent: respiratory distress, wheezes, rales, rhonchi, stridor Cardiovascular Exam: Present: regular rate, normal rhythm, normal heart sounds. Absent: systolic murmur, diastolic murmur, rubs, gallop, clicks GI/Abdominal exam: Present: soft, normal bowel sounds. Absent: distended, tenderness, guarding, rebound, rigid Extremities exam: Present: normal inspection, full ROM, normal capillary refill. Absent: tenderness, pedal edema, joint swelling, calf tenderness Neurological exam: Present: alert, oriented X3 Psychiatric exam: Present: normal affect, normal mood Skin exam: Present: warm, dry, intact, normal color. Absent: rash Course Vital Signs 09/30/20 16:00 Temperature 98.2 F Pulse Rate 98 Respiratory 20 Rate Blood Pressure 137/95 O2 Sat by Pulse 99 Oximetry Medical Decision Making - Medical Decision Making 24-year-old female complaining of abdominal pain recent seen on 09/28/2020. Labs, 1 L normal saline, 4 mg of Zofran, 15 mg of Toradol, CT of the abdomen and pelvis ordered. Labs improved from previous studies. CT negative for any acute process. Case discussed with Dr. Pugh, patient discharge home with follow-up to primary care and GI specialist. - Lab Data Result diagrams: 09/30/20 17:03 09/30/20 17:03 Lab Results 09/30/20 09/30/20 09/30/20 Range/Units 17:03 17:03 17:03 WBC 10.2 (3.8-10.6) k/uL RBC 4.46 (3.80-5.40) m/uL Hgb 12.8 (11.4-16.0) gm/dL Hct 39.6 (34.0-46.0) % MCV 88.7 (80.0-100.0) fL MCH 28.6 (25.0-35.0) pg MCHC 32.2 (31.0-37.0) g/dL RDW 13.4 (11.5-15.5) % Plt Count 495 H (150-450) k/uL MPV 6.5 Neutrophils % 78 % Lymphocytes % 16 % Monocytes % 3 % Eosinophils % 1 % Basophils % 1 % Neutrophils # 7.9 H (1.3-7.7) k/uL Lymphocytes # 1.6 (1.0-4.8) k/uL Monocytes # 0.3 (0-1.0) k/uL Eosinophils # 0.1 (0-0.7) k/uL Basophils # 0.1 (0-0.2) k/uL Sodium (137-145) mmol/L Potassium (3.5-5.1) mmol/L Chloride (98-107) mmol/L Carbon Dioxide (22-30) mmol/L Anion Gap mmol/L BUN (7-17) mg/dL Creatinine (0.52-1.04) mg/dL Est GFR (CKD-EPI)AfAm (>60 ml/min/1.73 sqM) Est GFR (CKD-EPI)NonAf (>60 ml/min/1.73 sqM) Glucose (74-99) mg/dL Calcium (8.4-10.2) mg/dL Total Bilirubin (0.2-1.3) mg/dL AST (14-36) U/L ALT (4-34) U/L Alkaline Phosphatase (38-126) U/L Total Protein (6.3-8.2) g/dL Albumin (3.5-5.0) g/dL Urine Color Yellow Urine Appearance Cloudy H (Clear) Urine pH 6.5 (5.0-8.0) Ur Specific [place] 1.021 (1.001-1.035) Urine Protein Negative (Negative) Urine Glucose (UA) Negative (Negative) Urine Ketones Negative (Negative) Urine Blood Negative (Negative) Urine Nitrite Negative (Negative) Urine Bilirubin Negative (Negative) Urine Urobilinogen <2.0 (<2.0) mg/dL Ur Leukocyte Esterase Moderate H (Negative) Urine RBC 6 H (0-5) /hpf Urine WBC 8 H (0-5) /hpf Ur Squamous Epith Cells 26 H (0-4) /hpf Urine Bacteria Rare H (None) /hpf Hyaline Casts 1 (0-2) /lpf Urine Mucus Occasional H (None) /hpf Urine HCG, Qual Not Detected (Not Detectd) 09/30/20 Range/Units 17:03 WBC (3.8-10.6) k/uL RBC (3.80-5.40) m/uL Hgb (11.4-16.0) gm/dL Hct (34.0-46.0) % MCV (80.0-100.0) fL MCH (25.0-35.0) pg MCHC (31.0-37.0) g/dL RDW (11.5-15.5) % Plt Count (150-450) k/uL MPV Neutrophils % % Lymphocytes % % Monocytes % % Eosinophils % % Basophils % % Neutrophils # (1.3-7.7) k/uL Lymphocytes # (1.0-4.8) k/uL Monocytes # (0-1.0) k/uL Eosinophils # (0-0.7) k/uL Basophils # (0-0.2) k/uL Sodium 138 (137-145) mmol/L Potassium 5.4 H (3.5-5.1) mmol/L Chloride 103 (98-107) mmol/L Carbon Dioxide 23 (22-30) mmol/L Anion Gap 12 mmol/L BUN 11 (7-17) mg/dL Creatinine 0.59 (0.52-1.04) mg/dL Est GFR (CKD-EPI)AfAm >90 (>60 ml/min/1.73 sqM) Est GFR (CKD-EPI)NonAf >90 (>60 ml/min/1.73 sqM) Glucose 85 (74-99) mg/dL Calcium 9.5 (8.4-10.2) mg/dL Total Bilirubin 0.7 (0.2-1.3) mg/dL AST 36 (14-36) U/L ALT 15 (4-34) U/L Alkaline Phosphatase 82 (38-126) U/L Total Protein 7.9 (6.3-8.2) g/dL Albumin 4.6 (3.5-5.0) g/dL Urine Color Urine Appearance (Clear) Urine pH (5.0-8.0) Ur Specific [place] (1.001-1.035) Urine Protein (Negative) Urine Glucose (UA) (Negative) Urine Ketones (Negative) Urine Blood (Negative) Urine Nitrite (Negative) Urine Bilirubin (Negative) Urine Urobilinogen (<2.0) mg/dL Ur Leukocyte Esterase (Negative) Urine RBC (0-5) /hpf Urine WBC (0-5) /hpf Ur Squamous Epith Cells (0-4) /hpf Urine Bacteria (None) /hpf Hyaline Casts (0-2) /lpf Urine Mucus (None) /hpf Urine HCG, Qual (Not Detectd) Disposition Clinical Impression: Abdominal pain Disposition: HOME SELF-CARE Condition: Stable Instructions (If sedation given, give patient instructions): Abdominal Pain (ED) Additional Instructions: Please return to the Emergency Department if symptoms worsen or any other concerns. Follow-up primary care in the next several days. Follow-up with GI specialist. Take Bentyl as prescribed. Increase oral fluids. Increase dietary fiber. Is patient prescribed a controlled substance at d/c from ED?: No Referrals: Geovanna Lindo MD [Primary Care Provider] - 1-2 days Brian Pozo MD [STAFF PHYSICIAN] - 1-2 days Time of Disposition: 18:27
[2020-09-30 18:51] VITALS: BP 129/72; PULSE 88; RESP 18
== END 2020-09-30 18:51 | disposition home or self-care (01) ==
LOC: EC 15:54
DX: R10.32 Left lower quadrant pain (principal); J45.909 Unspecified asthma, uncomplicated; G43.909 Migraine, unspecified, not intractable, without status migrainosus; F41.9 Anxiety disorder, unspecified; Z79.51 Long term (current) use of inhaled steroids; Z79.899 Other long term (current) drug therapy; Z88.0 Allergy status to penicillin; Z88.1 Allergy status to other antibiotic agents; Z88.2 Allergy status to sulfonamides
CPT/HCPCS: 36415; 80053; 85025; 81001; 81025; 74177; 99284; 96374; 96375; J2405; J1885; Q9967

== ENCOUNTER 2020-11-18 07:56 | Emergency (ER) | payer OTHER ==
[2020-11-18 08:10] VITALS: PULSE 87; TEMP 98
[2020-11-18] MEDS ORDERED: KETOROLAC 15 MG/ML 1 ML VIAL IM STA (08:30)
[2020-11-18] MEDS ORDERED: NITROFURANTOIN MONOHYD/M-CRYST 100 MG CAP PO STA (08:46)
[2020-11-18 09:07] LABS: Appearance,Urine Cloudy (Clear); Bilirubin,Urine Negative (Negative); Blood,Urine Negative (Negative); Color,Urine Yellow; Glucose,Urine (UA) Negative (Negative); Ketones,Urine Negative (Negative); Leukocyte Esterase,Urine Moderate (Negative); Mucus,Urine Rare /hpf; Nitrite,Urine Negative (Negative); PH, Urine 5.5 (5.0-8.0); Protein,Urine Negative (Negative); RBC,Urine 3 /hpf (0-5); Specific Gravity,Urine 1.025 (1.001-1.035); Squamous Epithelial Cell,Urine 7 /hpf (0-4); Urobilinogen,Urine <2.0 mg/dL (<2.0); WBC,Urine 1 /hpf (0-5)
--- NOTE | 2020-11-18 09:39 | ED ---
General Adult HPI - General Chief complaint: Urogenital Stated complaint: Back Pain Time Seen by Provider: 11/18/20 08:11 Source: patient Mode of arrival: ambulatory Limitations: no limitations - History of Present Illness Initial comments: 25-year-old female with a past medical history of asthma, migraines presents to the emergency department for left low back pain. This has been going on for the past 2 days. Patient saw her primary care provider yesterday and was diagnosed with a kidney infection. Patient has ALLERGIES to several antibiotics so was given Macrobid, however she was not able to get the prescription and so came to the emergency room as her symptoms were worsening. Patient denies fevers. Does admit to fall swelling urine as well as dysuria. Denies any abdominal pain.Patient has no other complaints at this time including shortness of breath, chest pain, abdominal pain, nausea or vomiting, headache, or visual changes. - Related Data Home Medications Medication Instructions Recorded Confirmed Acetaminophen Tab [Tylenol Tab] 1,000 mg PO Q6HR PRN 04/08/20 09/30/20 Albuterol Sulfate [Proair Hfa] 2 puff INHALATION RT-QID PRN 09/30/20 09/30/20 Dicyclomine HCl 10 mg PO TID PRN 09/30/20 09/30/20 Loratadine 10 mg PO DAILY PRN 09/30/20 09/30/20 Nitrofurantoin Monohyd/M-Cryst 100 mg PO Q12HR 09/30/20 09/30/20 [Macrobid] Pantoprazole Sodium 40 mg PO DAILY 09/30/20 09/30/20 Previous Rx's Medication Instructions Recorded Famotidine [Pepcid] 20 mg PO BID #60 tablet 09/28/20 Ondansetron [Zofran ODT] 4 mg PO Q8HR PRN #10 tab 09/28/20 Dicyclomine [Bentyl] 20 mg PO TID #30 tablet 09/30/20 Nitrofurantoin Monohyd/M-Cryst 100 mg PO Q12HR #20 cap 11/18/20 [Macrobid] Allergies Allergy/AdvReac Type Severity Reaction Status Date / Time amoxicillin [Amoxicillin] Allergy Rash/Hives Verified 11/18/20 08:10 azithromycin Allergy Rash/Hives Verified 11/18/20 08:10 cephalexin monohydrate Allergy Rash/Hives Verified 11/18/20 08:10 [From Keflex] ciprofloxacin [From Cipro] Allergy Rash/Hives Verified 11/18/20 08:10 ciprofloxacin HCl Allergy Rash/Hives Verified 11/18/20 08:10 [From Cipro] Penicillins Allergy Rash/Hives Verified 11/18/20 08:10 sulfamethoxazole Allergy Rash/Hives Verified 11/18/20 08:10 [From Bactrim] trimethoprim [From Bactrim] Allergy Rash/Hives Verified 11/18/20 08:10 Review of Systems ROS Statement: Those systems with pertinent positive or pertinent negative responses have been documented in the HPI. ROS Other: All systems not noted in ROS Statement are negative. Past Medical History Past Medical History: Asthma Additional Past Medical History / Comment(s): MIGRAINES History of Any Multi-Drug Resistant Organisms: None Reported Past Surgical History: No Surgical Hx Reported Additional Past Surgical History / Comment(s): wisdom teeth Past Psychological History: Anxiety Smoking Status: Never smoker Past Alcohol Use History: Occasional Past Drug Use History: None Reported General Exam Limitations: no limitations General appearance: alert, in no apparent distress Head exam: Present: atraumatic Eye exam: Present: normal appearance, PERRL, EOMI. Absent: scleral icterus ENT exam: Present: normal exam, mucous membranes moist Neck exam: Present: normal inspection, full ROM. Absent: tenderness Respiratory exam: Present: normal lung sounds bilaterally. Absent: respiratory distress, wheezes Cardiovascular Exam: Present: regular rate, normal rhythm, normal heart sounds GI/Abdominal exam: Present: soft, normal bowel sounds. Absent: distended, tenderness Back exam: Absent: CVA tenderness (R), CVA tenderness (L) Course Vital Signs 11/18/20 08:06 Temperature 98.0 F Pulse Rate 87 Respiratory 18 Rate Blood Pressure 107/56 O2 Sat by Pulse 97 Oximetry Medical Decision Making - Medical Decision Making Vitals are stable. Patient is well-appearing. Patient does not have any abdominal tenderness. No CVA tenderness on the left or right. She does have low to mid back pain. Her analysis was obtained here. This showed 1 white blood cell. Urine will be cultured as she insists that yesterday the urinalysis looked very infected. Given his symptoms of dysuria and foul-smelling urine patient will be treated with Macrobid. She is ALLERGIC to Rocephin, Keflex, amoxicillin, Cipro, Bactrim which i did confrim. We will culture her urine. She will follow up with primary and return for worsening symptoms. - Lab Data Lab Results 11/18/20 11/18/20 Range/Units 08:39 08:39 Urine Color Yellow Urine Appearance Cloudy H (Clear) Urine pH 5.5 (5.0-8.0) Ur Specific [place] 1.025 (1.001-1.035) Urine Protein Negative (Negative) Urine Glucose (UA) Negative (Negative) Urine Ketones Negative (Negative) Urine Blood Negative (Negative) Urine Nitrite Negative (Negative) Urine Bilirubin Negative (Negative) Urine Urobilinogen <2.0 (<2.0) mg/dL Ur Leukocyte Esterase Moderate H (Negative) Urine RBC 3 (0-5) /hpf Urine WBC 1 (0-5) /hpf Ur Squamous Epith Cells 7 H (0-4) /hpf Urine Mucus Rare H (None) /hpf Urine HCG, Qual Not Detected (Not Detectd) Disposition Clinical Impression: Low back pain Disposition: HOME SELF-CARE Condition: Good Instructions (If sedation given, give patient instructions): Urinary Tract Infection in Women (ED) Additional Instructions: Please take medications as directed. Follow-up with your doctor in one to 2 days. If you have any worsening symptoms return to the emergency room. Prescriptions: Nitrofurantoin Monohyd/M-Cryst [Macrobid] 100 mg PO Q12HR #20 cap Is patient prescribed a controlled substance at d/c from ED?: No Referrals: Geovanna Lindo MD [Primary Care Provider] - 1-2 days Time of Disposition: 09:26
[2020-11-18 10:12] VITALS: BP 124/78; RESP 20
[2020-11-20 06:01] LABS: C. trachomatis,PCR Negative (Neg,Equiv); Chlamydia trachomatis Source Urine; N. gonorrhoeae,PCR Negative (Neg,Equiv); Neisseria Source Urine
== END 2020-11-18 10:12 | disposition home or self-care (01) ==
LOC: EC 07:56
DX: M54.5 Low back pain (principal); J45.909 Unspecified asthma, uncomplicated; F41.9 Anxiety disorder, unspecified; Z88.0 Allergy status to penicillin; Z88.1 Allergy status to other antibiotic agents; Z88.2 Allergy status to sulfonamides
CPT/HCPCS: 99283; 96372; 81001; 81025; 87491; 87591; 87086; J1885

== ENCOUNTER → 2021-07-29 | Outpatient (CLI) | payer OTHER ==
--- NOTE | 2021-07-29 10:03 | P.CON ---
Consult Note - . Consult date: 07/29/21 Assessment/Plan:: HISTORY OF PRESENT ILLNESS: 25 yr old female as a referral from Dr. Arik Agosto presents today with chronic & severe neck and headache pain secondary to occipital neuralgia for evaluation. Pt states her pain level is 7 out of 10 in intensity, constant, throbbing, aching sensation in the upper aspects of her cervical spine with radiation of pain up the scalp. Pain has no identifiable provocative factors or sufficient palliative factors. For partial relief, patient relies on medications (Neurontin, Flexeril, Imitrex), chiropractic treatments for years 2 times month, repositioning and rest. Past Medical History: Asthma, Migraine HAs, Anxiety Past Surgical History: Neola Teeth Extraction Past Psychological History: Anxiety Social History: Never smoker, Occasional ETOH use, No illicit drug use Family History: Non contributory All: See list Meds: See list REVIEW OF ORGAN SYSTEMS: CONSTITUTIONAL: No fevers or chills. No recent weight loss. HEENT: No visual acuity loss, eye pain, difficulties with hearing. No nosebleeds. No difficulty swallowing. RESPIRATORY: Denies any troubles with breathing or dyspnea on exertion. CARDIOVASCULAR: Denies any chest pain, palpitations, or recent heart attacks. GASTROINTESTINAL: Denies fatty food intolerance. Has change in bowel habits and gas bloat. GENITOURINARY: Denies any blood in urine. Has increased urinary frequency. NEUROLOGICAL: + numbness and tingling along the distal extremities. No seizure disorders or headaches. MUSCULOSKELETAL: + back pain SKIN: No skin cancer. No rash. PSYCHIATRIC: Denies current depression or suicidal thoughts. ENDOCRINE: Denies current thyroid disorders. Denies any blood sugar glucose intolerance. HEME/LYMPHATIC: Denies any lumps and bumps around the neck. History of deep venous thrombosis. ALLERGY/IMMUNOLOGY: No immunoglobulin therapy. No immune deficiencies. BREAST: Denies current breast lumps, pain or nipple discharge. Physical Examinations : Constitutional : Cooperative , not in acute distress . HEENT: Neck supple. No Lymphadenopathy. Normal thyroid size . Eyes no ptosis , no icterus, no photophobia . +BL WYATT, +BL SEKOU Hearing intact. Normal oropharynx. No Thrush. Respiratory : Chest clear to auscultations bilaterally. No wheezing. No rhonchi. Cardiovascular : Regular rate and rhythm , S1 / S2. No S3 . No S4. Gastrointestinal : Abdomen soft. No tenderness. Bowel sounds x 4. No organomegaly . Genitourinary : Deferred. Neurologic : Cranial nerve II to XII intact. No focal neurological deficits. Psychiatric : alert & oriented x 3. Matching mood & appropriate affect. Judgment & insight intact. Lymphatic No Lymphadenopathy. Musculoskeletal : Cervical Spine Motor strength in the deltoid and biceps: Normal right side. Normal Left side Motor strength biceps and the wrist extensors: Normal right side . Normal left side Motor strength in the triceps muscle: Normal right side. Normal left side Deep tendon reflexes: Normal at the biceps. Normal at Brachioradialis. Normal at triceps Cervical facet loading test: positive bilaterally Spurling test: positive bilaterally Neck distraction test: positive bilaterally Titi sign: positive bilaterally Lumbar spine Motor strength lower extremities ,thigh and legs 5/5 Right side , 5/5 Left side Deep tendon reflexes : Normal Knee Jerk. Normal Ankle Jerk Vertebral body tenderness over Lumbar facet Loading Test: positive Right / positive Left Range of motion of the lumbar spine Flexion 30 degrees, extension 10 degrees Straight Leg Raise test: Left/ Right positive at degree Mirna test: positive right / positive left. Severe tenderness over the Sacroiliac joint on the Right / Left sides Gaenslen test: positive bilaterally Seated flexion test: positive bilaterally. Imaging: MRI of Brain without contrast from 01/04/22 reviewed. Assessment/ Plan : occipital neuralgia Recommendation of BL G.O.N. injections. May need a series of injections, up to 3 within a six-month period, for optimal pain relief. Risks, benefits of pr ocedure discussed and patient verbalized understanding. Denies aspirin or anti- coagulant use or medical history of diabetes.. All questions answered. I have spent greater than 50 minutes on patient care today. Dr Marinelli was available by phone for the evaluation of this patient. The time was used to review the medical records including relevant urine studies and Prescription history (MAPs), review of the available imaging, evaluation and examination of the patient, coordination of care with the medical staff and if applicable referring physicians, as well as creation of the medical record PQRS Measure Charge Sheet PQRS Narrative: Smoking Status Current every day smoker Home Medications: Ambulatory Orders Acetaminophen Tab [Tylenol Tab] 1,000 mg PO Q6HR PRN 04/08/20 Famotidine [Pepcid] 20 mg PO BID #60 tablet 09/28/20 Ondansetron [Zofran ODT] 4 mg PO Q8HR PRN #10 tab 09/28/20 Albuterol Sulfate [Proair Hfa] 2 puff INHALATION RT-QID PRN 09/30/20 Dicyclomine HCl 10 mg PO TID PRN 09/30/20 Dicyclomine [Bentyl] 20 mg PO TID #30 tablet 09/30/20 Loratadine 10 mg PO DAILY PRN 09/30/20 Nitrofurantoin Monohyd/M-Cryst [Macrobid] 100 mg PO Q12HR 09/30/20 Pantoprazole Sodium 40 mg PO DAILY 09/30/20 Nitrofurantoin Monohyd/M-Cryst [Macrobid] 100 mg PO Q12HR #20 cap 11/18/20
[2021-07-29 10:11] VITALS: BP 114/71; PULSE 77; RESP 18; TEMP 98.4
== END ==
LOC: PNWHC3 09:21
PROVIDERS: ATTEND Specialist
DX: M54.81 Occipital neuralgia (principal); J45.909 Unspecified asthma, uncomplicated; G43.909 Migraine, unspecified, not intractable, without status migrainosus; F41.9 Anxiety disorder, unspecified; F17.200 Nicotine dependence, unspecified, uncomplicated; Z88.1 Allergy status to other antibiotic agents; Z88.0 Allergy status to penicillin; Z88.2 Allergy status to sulfonamides
CPT/HCPCS: 99211

== ENCOUNTER 2021-09-08 08:33 | Day surgery (SDC) | payer OTHER ==
[2021-09-04 15:32] VITALS: BMI 48.0
[~2021-09-08 08:33] MED LIST: LIDOCAINE 1% (10MG/ML) FOR IV START INTRADERMA PRN
[2021-09-08 09:01] VITALS: TEMP 97.3
[2021-09-08] MEDS: LACTATED RINGERS 1,000 ML IV SCH ×2 (09:06→09:07)
[2021-09-08] MEDS ORDERED: MIDAZOLAM 2 MG/2 ML VIAL ONE (09:08)
[2021-09-08] MEDS ORDERED: fentaNYL (PF) 50 MCG/ML 2 ML AMP ONE (09:08)
[2021-09-08] MEDS ORDERED: ROPIVACAINE 5MG/ML 20ML VIAL ONE (09:08)
[2021-09-08] MEDS ORDERED: methylPREDNISolone ACETATE 80 MG/ML 1 ML VIAL ONE (09:08)
--- NOTE | 2021-09-08 09:17 | P.PCN ---
Date of Procedure: 09/08/21 Procedure(s) Performed: Preoperative diagnoses= 1- Greater occipital neuralgia Postoperative diagnoses= same as preoperative diagnosis. Procedure= Bilateral Greater occipital nerve block Anesthesia= moderate sedation with Versed 2 mg and fentanyl 100 micrograms and local infiltration with lidocaine 1% 4 ml Estimated blood loss=minimal. Procedure indication= the patient had a history of severe chronic neck pain ,and headache, diagnosed with occipital neuralgia exam was positive for severe tenderness over the occipital nerve bilaterally, she will be a good candidate occipital nerve block, patient failed conservative management Procedure description= the patient was seen and identified in the preoperative holding area, risks and benefits and alternative of the procedure and possible complications discussed with the patient, and he agreed with the preceding, patient signed the consent, an IV was started, and vital signs were monitored and were stable throughout the procedure, patient was placed in the sitting position or table and the neck area was prepped and draped with a sterile fash ion, vital signs were closely monitored during the procedure, 25-gauge needle advanced 1 inch lateral to the occipital protuberance on the right side, at the location of the right occipital nerve , then after negative aspiration for heme and CSF and there was no paresthesia during the injection, 6 ml of Robivacaine 0.5% and 40 mg of Depo-Medrol injected after negative aspiration, the needle rem haley, and the entire same procedure was repeated for the left Greater occipital nerve. Patient tolerated the procedure well without any complication, The patient returned to supine position after the back was cleaned and a Band- Aid applied, the patient transported to recovery room in stable condition and he was monitored for 30 minutes before he was discharged home and then patient was reexamined before going home and patient was discharged in stable condition and patient will follow up with the pain clinic in a few weeks.
[2021-09-08] MEDS ORDERED: IV FLUID CONTINUATION 900 ML IV ONE (09:22)
[2021-09-08 09:26] VITALS: RESP 16
[2021-09-08 09:43] VITALS: BP 126/72; PULSE 81
== END 2021-09-08 09:53 | disposition home or self-care (01) ==
LOC: ORPAIN 08:33
PROVIDERS: ATTEND Specialist
DX: M54.81 Occipital neuralgia (principal)
CPT/HCPCS: 81025; 64405; J2250; J1040; J3010; J2795

== ENCOUNTER 2023-08-11 11:35 | Emergency (ER) | payer BC, OTHER ==
--- NOTE | 2023-08-11 12:22 | ED ---
URI HPI - General Chief Complaint: Upper Respiratory Infection Stated Complaint: Chest Congestion Time Seen by Provider: 08/11/23 12:21 Source: patient, RN notes reviewed Mode of arrival: ambulatory Limitations: no limitations - History of Present Illness Initial Comments: 27-year-old female with no significant past medical history presenting to the ER with cough x 2 days. States she is concerned because she was up all last night coughing. Reports nonproductive cough. Denies nasal congestion, fever, sore throat, chest pain, shortness of breath, wheezing. States her boyfriend has similar symptoms. - Related Data Home Medications Medication Instructions Recorded Confirmed Ibuprofen [Motrin] 800 mg PO Q4HR PRN 09/04/21 09/08/21 Lamictal (Unknown Dose) 1 tab PO DAILY 09/04/21 09/08/21 Rimegepant Sulfate [Nurtec Odt] 75 mg PO Q48H 09/04/21 09/08/21 SUMAtriptan succinate [Imitrex] 50 mg PO DAILY 09/04/21 09/08/21 busPIRone HCl [Buspar] 5 mg PO TID 09/04/21 09/08/21 Previous Rx's Medication Instructions Recorded Benzonatate [Tessalon Perles] 100 mg PO TID PRN #15 capsule 08/11/23 Doxycycline [Vibramycin] 100 mg PO BID 7 Days #14 capsule 08/11/23 Allergies Allergy/AdvReac Type Severity Reaction Status Date / Time amoxicillin [Amoxicillin] Allergy Rash/Hives Verified 08/11/23 11:46 azithromycin Allergy Rash/Hives Verified 08/11/23 11:46 cephalexin monohydrate Allergy Rash/Hives Verified 08/11/23 11:46 [From Keflex] ciprofloxacin [From Cipro] Allergy Rash/Hives Verified 08/11/23 11:46 ciprofloxacin HCl Allergy Rash/Hives Verified 08/11/23 11:46 [From Cipro] Penicillins Allergy Rash/Hives Verified 08/11/23 11:46 sulfamethoxazole Allergy Rash/Hives Verified 08/11/23 11:46 [From Bactrim] trimethoprim [From Bactrim] Allergy Rash/Hives Verified 08/11/23 11:46 Review of Systems ROS Statement: Those systems with pertinent positive or pertinent negative responses have been documented in the HPI. ROS Other: All systems not noted in ROS Statement are negative. Past Medical History Past Medical History: Asthma Additional Past Medical History / Comment(s): migraines., asthma (no rx), hx fx wrist & right ankle, currently has right sprained ankle. History of Any Multi-Drug Resistant Organisms: None Reported Past Surgical History: No Surgical Hx Reported Additional Past Surgical History / Comment(s): wisdom teeth Additional Past Anesthesia/Blood Transfusion Reaction / Comment(s): no anesthesia hx Past Psychological History: Anxiety, Bipolar, Depression, PTSD Smoking Status: Never smoker Past Alcohol Use History: Occasional Past Drug Use History: None Reported General Exam Limitations: no limitations General appearance: alert, in no apparent distress Head exam: Present: atraumatic, normocephalic, normal inspection Eye exam: Present: normal appearance, PERRL, EOMI. Absent: scleral icterus, conjunctival injection, periorbital swelling ENT exam: Present: normal exam, normal oropharynx, mucous membranes moist Neck exam: Present: normal inspection. Absent: tenderness, meningismus, lymphadenopathy Respiratory exam: Present: normal lung sounds bilaterally. Absent: respiratory distress, wheezes, rales, rhonchi, stridor Cardiovascular Exam: Present: regular rate, normal rhythm, normal heart sounds. Absent: systolic murmur, diastolic murmur, rubs, gallop, clicks GI/Abdominal exam: Present: soft, normal bowel sounds. Absent: distended, tenderness, guarding, rebound, rigid Neurological exam: Present: alert, oriented X3, CN II-XII intact Psychiatric exam: Present: normal affect, normal mood Skin exam: Present: warm, dry, intact, normal color. Absent: rash Course Vital Signs 08/11/23 08/11/23 11:44 12:03 Temperature 98.4 F Pulse Rate 94 Respiratory 18 18 Rate Blood Pressure 133/85 O2 Sat by Pulse 97 Oximetry Medical Decision Making - Medical Decision Making Was pt. sent in by a medical professional or institution (, PA, AIR QUALITY SPECIALIST, urgent care, hospital, or [facility]...) When possible be specific @ -No Did you speak to anyone other than the patient for history (EMS, parent, family, police, friend...)? What history was obtained from this source @ -No Did you review nursing and triage notes (agree or disagree)? Why? @ -I reviewed and agree with nursing and triage notes Were old charts reviewed (outside hosp., previous admission, EMS record, old EKG, old radiological studies, urgent care reports/EKG's, [facility] records)? Report findings @ -No old charts were reviewed Differential Diagnosis (chest pain, altered mental status, abdominal pain women, abdominal pain men, vaginal bleeding, weakness, fever, dyspnea, syncope, headache, dizziness, GI bleed, back pain, seizure, CVA, palpatations, mental health, musculoskeletal)? @ -Pneumonia, bronchitis, viral URI, influenza, COVID EKG interpreted by me (3pts min.). @ -None X-rays interpreted by me (1pt min.). @ -Chest x-ray reveals small area of patchy density in right upper lobe, early pneumonia/infiltrate suspected CT interpreted by me (1pt min.). @ -None done U/S interpreted by me (1pt. min.). @ -None done What testing was considered but not performed or refused? (CT, X-rays, U/S, labs)? Why? @ -None What meds were considered but not given or refused? Why? @ -None Did you discuss the management of the patient with other professionals (professionals i.e. , PA, AIR QUALITY SPECIALIST, lab, RT, psych nurse, social staff worker, oil spot washer, teacher, sports development officer, immigration case worker)? Give summary @ -No Was smoking cessation discussed for >3mins.? @ -No Was critical care preformed (if so, how long)? @ -No Were there social determinants of health that impacted care today? How? (Homelessness, low income, unemployed, alcoholism, drug addiction, transportation, low edu. Level, literacy, decrease access to med. care, [facility], rehab)? @ -No Was there de-escalation of care discussed even if they declined (Discuss DNR or withdrawal of care, Hospice)? DNR status @ -No What co-morbidities impacted this encounter? (DM, HTN, Smoking, COPD, CAD, Cancer, CVA, ARF, Chemo, Hep., AIDS, mental health diagnosis, sleep apnea, morbid obesity)? @ -None Was patient admitted / discharged? Hospital course, mention meds given and route, prescriptions, significant lab abnormalities, going to OR and other pertinent info. @ -Patient was discharged. Patient was seen and evaluated for cough x 2 days. Vitals are stable. Chest x-ray reveals small area of patchy density in right upper lobe, likely early infiltrate/pneumonia. Flu, COVID, and RSV are neg ative. Discussed diagnosis of community-acquired pneumonia with patient. Prescribed doxycycline and Tessalon Perles for cough. Strict return/alarm symptoms discussed with patient in detail and patient showed understanding and agreed. Work note provided. Supportive care discussed. Patient discharged in stable condition. Discussed with Dr. Roman Undiagnosed new problem with uncertain prognosis? @ -No Drug Therapy requiring intensive monitoring for toxicity (Heparin, Nitro, Insulin, Cardizem)? @ -No Were any procedures done? @ -No Diagnosis/symptom? @ -Community-acquired pneumonia Acute, or Chronic, or Acute on Chronic? @ -Acute Uncomplicated (without systemic symptoms) or Complicated (systemic symptoms)? @ -Uncomplicated Side effects of treatment? @ -No Exacerbation, Progression, or Severe Exacerbation? @ -No Poses a threat to life or bodily function? How? (Chest pain, [place], [place], pneumonia, PE, COPD, DKA, ARF, appy, cholecystitis, CVA, Diverticulitis, Homicidal, Suicidal, threat to staff... and all critical care pts) @ -Low likelihood - Lab Data Lab Results 08/11/23 Range/Units 12:46 Influenza Type A (PCR) Not Detected (Not Detectd) Influenza Type B (PCR) Not Detected (Not Detectd) RSV (PCR) Not Detected (Not Detectd) SARS-CoV-2 (PCR) Not Detected (Not Detectd) Disposition Clinical Impression: Right upper lobe pneumonia Disposition: HOME SELF-CARE Condition: Stable Instructions (If sedation given, give patient instructions): Pneumonia (ED) Additional Instructions: Please take doxycycline to completion. Please return to the Emergency Department if symptoms worsen or any other concerns. Prescriptions: Benzonatate [Tessalon Perles] 100 mg PO TID PRN #15 capsule PRN Reason: Cough Doxycycline [Vibramycin] 100 mg PO BID 7 Days #14 capsule Is patient prescribed a controlled substance at d/c from ED?: No Referrals: Destiney Celis PAC [Primary Care Provider] - 1-2 days Time of Disposition: 14:35
--- NOTE | 2023-08-11 13:21 | XR ---
EXAMINATION TYPE: XR chest 2V DATE OF EXAM: 08/11/2023 COMPARISON: 03/04/2017 TECHNIQUE: PA and lateral views submitted. HISTORY: Cough FINDINGS: A linear patchy changes right upper lobe. No pneumothorax or pleural effusion.. Heart size normal an d no overt failure. Osseous structures intact. IMPRESSION: 1. Small area of patchy density right upper lobe. Early infiltrate\pneumonia in the differential diag nosis..
[2023-08-11 14:52] VITALS: BP 130/84; PULSE 86; RESP 16; TEMP 98.9
== END 2023-08-11 14:43 | disposition home or self-care (01) ==
LOC: EC 11:35
DX: J18.1 Lobar pneumonia, unspecified organism (principal); Z88.1 Allergy status to other antibiotic agents; Z88.0 Allergy status to penicillin; Z88.2 Allergy status to sulfonamides; Z88.8 Allergy status to other drugs, medicaments and biological substances
CPT/HCPCS: 71046; 87636; 99283

== ENCOUNTER 2023-12-11 08:05 | Emergency (ER) | payer SELFPAY ==
[2023-12-11 08:26] VITALS: RESP 18
--- NOTE | 2023-12-11 08:54 | ED ---
Lower Extremity Injury HPI - General Chief Complaint: Extremity Injury, Lower Stated Complaint: Left leg pain Time Seen by Provider: 12/11/23 08:51 Source: patient, RN notes reviewed Mode of arrival: ambulatory Limitations: no limitations - History of Present Illness Initial Comments: 28-year-old female presented to the ER with a chief complaint of left hip pain x 3 weeks. Patient reports she has been experiencing an achy persistent left hip pain. She states pain radiates from her posterior buttock to her inner groin down her left lower extremity. She reports it is extremely painful to walk, move, hang leg over without support. Only time she does not get the pain is when she is standing straight up. She does report she is favoring that leg and limping while walking. She denies any injuries or traumas. Denies any paresthesias. She has not taken any medications for her pain at this time. - Related Data Home Medications Medication Instructions Recorded Confirmed Ibuprofen [Motrin] 800 mg PO Q4HR PRN 09/04/21 09/08/21 Lamictal (Unknown Dose) 1 tab PO DAILY 09/04/21 09/08/21 Rimegepant Sulfate [Nurtec Odt] 75 mg PO Q48H 09/04/21 09/08/21 SUMAtriptan succinate [Imitrex] 50 mg PO DAILY 09/04/21 09/08/21 busPIRone HCl [Buspar] 5 mg PO TID 09/04/21 09/08/21 Previous Rx's Medication Instructions Recorded Benzonatate [Tessalon Perles] 100 mg PO TID PRN #15 capsule 08/11/23 Doxycycline [Vibramycin] 100 mg PO BID 7 Days #14 capsule 08/11/23 Allergies Allergy/AdvReac Type Severity Reaction Status Date / Time amoxicillin [Amoxicillin] Allergy Rash/Hives Verified 12/11/23 08:26 azithromycin Allergy Rash/Hives Verified 12/11/23 08:26 cephalexin monohydrate Allergy Rash/Hives Verified 12/11/23 08:26 [From Keflex] ciprofloxacin [From Cipro] Allergy Rash/Hives Verified 12/11/23 08:26 ciprofloxacin HCl Allergy Rash/Hives Verified 12/11/23 08:26 [From Cipro] Penicillins Allergy Rash/Hives Verified 12/11/23 08:26 sulfamethoxazole Allergy Rash/Hives Verified 12/11/23 08:26 [From Bactrim] trimethoprim [From Bactrim] Allergy Rash/Hives Verified 12/11/23 08:26 Review of Systems ROS Statement: Those systems with pertinent positive or pertinent negative responses have been documented in the HPI. ROS Other: All systems not noted in ROS Statement are negative. Past Medical History Past Medical History: Asthma Additional Past Medical History / Comment(s): migraines., asthma (no rx), hx fx wrist & right ankle, currently has right sprained ankle, sciatic back pain, History of Any Multi-Drug Resistant Organisms: None Reported Past Surgical History: No Surgical Hx Reported Additional Past Surgical History / Comment(s): wisdom teeth Additional Past Anesthesia/Blood Transfusion Reaction / Comment(s): no anesthesia hx Past Psychological History: Anxiety, Bipolar, Depression Smoking Status: Never smoker Past Alcohol Use History: Occasional Past Drug Use History: None Reported General Exam Limitations: no limitations General appearance: alert, in no apparent distress Respiratory exam: Present: normal lung sounds bilaterally. Absent: respiratory distress, wheezes, rales, rhonchi, stridor Cardiovascular Exam: Present: regular rate, normal rhythm, normal heart sounds. Absent: systolic murmur, diastolic murmur, rubs, gallop, clicks Extremities exam: Present: normal inspection, full ROM, tenderness (External rotation of left hip. Pain with abduction and adduction of hip against resistance. 5+ left lower extremity strength. 2+ left dorsalis pedis and posterior tibialis pulses.), other (No calf tenderness) Neurological exam: Present: alert, oriented X3, CN II-XII intact Skin exam: Present: warm, dry, intact, normal color. Absent: rash Course Vital Signs 12/11/23 12/11/23 08:23 10:34 Temperature 97.9 F 98.0 F Pulse Rate 85 76 Respiratory 18 18 Rate Blood Pressure 147/93 139/89 O2 Sat by Pulse 99 99 Oximetry Medical Decision Making - Medical Decision Making Was pt. sent in by a medical professional or institution (, PA, PRESIDENT & FOUNDER, urgent care, hospital, or [place] [facility] facility...) When possible be specific @ -No Did you speak to anyone other than the patient for history (EMS, parent, family, police, friend...)? What history was obtained from this source @ -No Did you review nursing and triage notes (agree or disagree)? Why? @ -I reviewed and agree with nursing and triage notes Were old charts reviewed (outside hosp., previous admission, EMS record, old EKG, old radiological studies, urgent care reports/EKG's, [place] [facility] facility records)? Report findings @ -No old charts were reviewed Differential Diagnosis (chest pain, altered mental status, abdominal pain women, abdominal pain men, vaginal bleeding, weakness, fever, dyspnea, syncope, headache, dizziness, GI bleed, back pain, seizure, CVA, palpatations, mental health, musculoskeletal)? @ -Differential Musculoskeletal: Muscular strain, contusion, ligament sprain, fracture, arthritis, septic arthritis, bursitis, cellulitis, muscle spasm, nerve compression, DVT, arterial occlusion, herpes zoster, electrolyte abnormality, tumor.... This is not meant to be in all inclusive list EKG interpreted by me (3pts min.). @ -None done X-rays interpreted by me (1pt min.). @ -Left hip x-ray AP pelvis negative for acute process. CT interpreted by me (1pt min.). @ -None done U/S interpreted by me (1pt. min.). @ -None done What testing was considered but not performed or refused? (CT, X-rays, U/S, labs)? Why? @ -None What meds were considered but not given or refused? Why? @ -None Did you discuss the management of the patient with other professionals (pro fessionals i.e. , PA, PRESIDENT & FOUNDER, lab, RT, psych nurse, sr. social media & mobile manager, automotive mechanic, teacher, staff readiness officer, welfare case worker)? Give summary @ -No Was smoking cessation discussed for >3mins.? @ -No Was critical care preformed (if so, how long)? @ -No Were there social determinants of health that impacted care today? How? (Homelessness, low income, unemployed, alcoholism, drug addiction, transportation, low edu. Level, literacy, decrease access to med. care, residential, rehab)? @ -No Was there de-escalation of care discussed even if they declined (Discuss DNR or withdrawal of care, Hospice)? DNR status @ -No What co-morbidities impacted this encounter? (DM, HTN, Smoking, COPD, CAD, Cancer, CVA, ARF, Chemo, Hep., AIDS, mental health diagnosis, sleep apnea, morbid obesity)? @ -Morbidly obese Was patient admitted / discharged? Hospital course, mention meds given and route, prescriptions, significant lab abnormalities, going to OR and other pertinent info. @ -[Discharge. 28-year-old female presented to the ER with a chief complaint of left hip pain. History and physical exam completed. Vitals within normal limits. Patient in no signs of distress. Left lower extremity neurovascular intact. There is pain with palpation to anterior groin, internal and external rotation of the hip. X-rays obtained negative for acute process. Patient refused analgesic medications. Pain believed to be musculoskeletal in nature. Advise close follow-up with PCP. Strict return parameters discussed. Patient discharged in stable condition. Patient verbally expressed understanding agreement care plan. Case discussed with the attending, Dr. Cook. Undiagnosed new problem with uncertain prognosis? @ -No Drug Therapy requiring intensive monitoring for toxicity (Heparin, Nitro, Insulin, Cardizem)? @ -No Were any procedures done? @ -No Diagnosis/symptom? @ -Hip pain Acute, or Chronic, or Acute on Chronic? @ -Acute Uncomplicated (without systemic symptoms) or Complicated (systemic symptoms)? @ -Uncomplicated Side effects of treatment? @ -No Exacerbation, Progression, or Severe Exacerbation? @ -No Poses a threat to life or bodily function? How? (Chest pain, [place], [place], pneumonia, PE, COPD, DKA, ARF, appy, cholecystitis, CVA, Diverticulitis, Homicidal, Suicidal, threat to staff... and all critical care pts) @ -No - Radiology Data Radiology results: report reviewed, image reviewed Disposition Clinical Impression: Muscle strain, Hip pain Disposition: HOME SELF-CARE Condition: Stable Instructions (If sedation given, give patient instructions): Muscle Strain (ED) Additional Instructions: Follow-up with PCP. Return to the ER for any new or worsening concerns Is patient prescribed a controlled substance at d/c from ED?: No Referrals: Aniya Cook DO [Primary Care Provider] - 1-2 days Time of Disposition: 10:16
--- NOTE | 2023-12-11 09:14 | XR ---
EXAMINATION TYPE: XR Hip LT and AP Pelvis DATE OF EXAM: 12/11/2023 COMPARISON: NONE HISTORY: Left hip pain for 3 weeks with no known injury TECHNIQUE: A single AP view of the pelvis is obtained. Two views of the left hip are obtained. FINDINGS: There is no acute fracture/dislocation evident in the pelvis. The hip and sacroiliac join ts appear symmetric and unremarkable. The overlying soft tissue appears unremarkable. Two views of left hip show no acute fracture or dislocation. No focal lytic or sclerotic lesion seen in the proximal left femur. The overlying soft tissue is unremarkable. IMPRESSION: There is no acute fracture or dislocation in the pelvis or left hip. [facility], , 12/11/2023 9:11 AM
[2023-12-11 10:35] VITALS: BP 139/89; PULSE 76; TEMP 98
== END 2023-12-11 10:35 | disposition home or self-care (01) ==
LOC: SUPCPDRO 08:05 → EC 08:05
CPT/HCPCS: 73502; 99283